=== PATIENT | male | born 1990 | race Caucasian/White ===

== ENCOUNTER 2018-06-04 19:00 | Inpatient (IN) | payer MEDICAID ==
[~2018-06-04] VITALS: Ht 165.1 cm; Wt 71.8 kg
[2018-06-04 19:57] LABS: BASOPHILS 0.1 % (0-2); EOSINOPHILS 0.8 % (0-7); HEMATOCRIT 43.2 % (42.0-54.0); HEMOGLOBIN 14.9 g/dL (13.5-17.5); IMMATURE GRANULOCYTES 0.3 % (0-5); LYMPHOCYTES 7.5 % (15-50); MCH 30.8 pg (26.0-34.0); MCHC 34.5 g/dL (31.0-37.0); MCV 89.3 fL (80.0-100.0); MEAN PLATELET VOLUME 10.5 fL (7.4-10.4); MONOCYTES 8.5 % (2-11); NEUTROPHILS 82.8 % (40-80); PLATELET COUNT 261 10x3/uL (130-400); RBC 4.84 10x6/uL (4.20-6.10); RDW 13.1 % (11.5-14.5); WBC 15.4 10x3/uL (4.8-10.8)
[2018-06-04 20:00] LABS: APPEARANCE CLEAR (CLEAR); COLOR YELLOW (YELLOW)
[2018-06-04 20:02] LABS: BILIRUBIN NEGATIVE (NEGATIVE); GLUCOSE NEGATIVE (NEGATIVE); KETONE NEGATIVE (NEGATIVE); NITRITE NEGATIVE (NEGATIVE); PROTEIN NEGATIVE (NEGATIVE); UROBILINOGEN NORMAL (NORMAL)
[2018-06-04 20:04] LABS: APTT 30.4 SECONDS (22.8-39.4); INR 1.08 (0.85-1.17); PROTIME 13.5 SECONDS (11.6-15.0)
[2018-06-04 20:11] LABS: ALBUMIN 3.9 g/dL (3.4-5.0); ALKALINE PHOSPHATASE 141 U/L (46-116); ALT (SGPT) 120 U/L (10-68); BILIRUBIN - TOTAL 0.67 mg/dL (0.2-1.3); CALC OSMOLALITY 266 mosm/kg (275-300); CALCIUM 8.6 mg/dL (8.5-10.1); CARBON DIOXIDE 27.5 mmol/L (21.0-32.0); CHLORIDE - SERUM 98 mmol/L (98-107); CREATININE - SERUM 1.1 mg/dL (0.6-1.3); GLUCOSE 105 mg/dL (74-106); POTASSIUM - SERUM 3.7 mmol/L (3.5-5.1); PROTEIN - SERUM 8.4 g/dL (6.4-8.2); SODIUM 133 mmol/L (136-145); UDS - AMPHET NEGATIVE QUAL (NEGATIVE); UDS - BARB NEGATIVE QUAL (NEGATIVE); UDS - BENZO NEGATIVE QUAL (NEGATIVE); UDS - COCAINE NEGATIVE QUAL (NEGATIVE); UDS - OPIATE NEGATIVE QUAL (NEGATIVE); UDS - PCP NEGATIVE QUAL (NEGATIVE); UDS - THC NEGATIVE QUAL (NEGATIVE); UREA NITROGEN 15 mg/dL (7-18); eGFR NON AFRICAN AMERICAN 85 mL/min (90-120)
[2018-06-04 20:21] LABS: CKMB 0.5 U/L (0.0-3.6); CREATINE KINASE 112 UL (21-232)
[2018-06-04 20:23] LABS: TROPONIN-I < 0.017 ng/mL (0.000-0.060)
[2018-06-04 23:39] VITALS: BP 110/76; Ht 165.1 cm; Wt 71.8 kg
[2018-06-05 07:16] LABS: BASOPHILS 0.1 % (0-2); EOSINOPHILS 1.1 % (0-7); HEMATOCRIT 40.9 % (42.0-54.0); HEMOGLOBIN 14.1 g/dL (13.5-17.5); IMMATURE GRANULOCYTES 0.2 % (0-5); LYMPHOCYTES 12.3 % (15-50); MCH 30.7 pg (26.0-34.0); MCHC 34.5 g/dL (31.0-37.0); MCV 88.9 fL (80.0-100.0); MEAN PLATELET VOLUME 11.3 fL (7.4-10.4); MONOCYTES 9.4 % (2-11); NEUTROPHILS 76.9 % (40-80); PLATELET COUNT 241 10x3/uL (130-400); RDW 13.3 % (11.5-14.5); WBC 12.1 10x3/uL (4.8-10.8)
[2018-06-05 07:37] LABS: ALBUMIN 3.1 g/dL (3.4-5.0); ALKALINE PHOSPHATASE 125 U/L (46-116); ALT (SGPT) 92 U/L (10-68); BILIRUBIN - TOTAL 0.48 mg/dL (0.2-1.3); CALCIUM 8.6 mg/dL (8.5-10.1); CARBON DIOXIDE 26.2 mmol/L (21.0-32.0); CHLORIDE - SERUM 101 mmol/L (98-107); GLUCOSE 103 mg/dL (74-106); POTASSIUM - SERUM 3.7 mmol/L (3.5-5.1); PROTEIN - SERUM 7.4 g/dL (6.4-8.2); SODIUM 137 mmol/L (136-145); eGFR NON AFRICAN AMERICAN > 90 mL/min (90-120)
[2018-06-05 07:38] LABS: CALC OSMOLALITY 275 mosm/kg (275-300); UREA NITROGEN 19 mg/dL (7-18)
[2018-06-05 09:05] VITALS: BP 127/70
[2018-06-05 12:47] VITALS: BP 120/75
[2018-06-05 17:24] VITALS: BP 132/77
[2018-06-05 20:34] VITALS: BP 123/76
[2018-06-06 00:05] VITALS: BP 134/74
[2018-06-06 05:15] VITALS: BP 124/63
[2018-06-06 06:25] LABS: BASOPHILS 0.1 % (0-2); EOSINOPHILS 2.1 % (0-7); HEMATOCRIT 43.3 % (42.0-54.0); HEMOGLOBIN 14.8 g/dL (13.5-17.5); IMMATURE GRANULOCYTES 0.2 % (0-5); MCH 30.5 pg (26.0-34.0); MCHC 34.2 g/dL (31.0-37.0); MCV 89.3 fL (80.0-100.0); MONOCYTES 12.6 % (2-11); PLATELET COUNT 228 10x3/uL (130-400); RBC 4.85 10x6/uL (4.20-6.10); RDW 13.2 % (11.5-14.5); WBC 13.7 10x3/uL (4.8-10.8)
[2018-06-06 06:36] LABS: CALCIUM 8.4 mg/dL (8.5-10.1); CHLORIDE - SERUM 103 mmol/L (98-107); CREATININE - SERUM 0.9 mg/dL (0.6-1.3); GLUCOSE 128 mg/dL (74-106); POTASSIUM - SERUM 3.7 mmol/L (3.5-5.1); SODIUM 139 mmol/L (136-145); eGFR NON AFRICAN AMERICAN > 90 mL/min (90-120)
[2018-06-06 06:42] LABS: CALC OSMOLALITY 277 mosm/kg (275-300)
[2018-06-06 06:46] LABS: UREA NITROGEN 8 mg/dL (7-18)
[2018-06-06 08:31] VITALS: BP 105/66
[2018-06-06 11:27] LABS: MONO NEGATIVE (NEGATIVE)
--- NOTE | 2018-06-06 15:13 | EC ---
PATIENT:FEMI CLEVELAND DATE OF SERVICE: 06/04/18 SEX: M MEDICAL RECORD: [id number] DATE OF : [birth year] LOCATION:[facility] [address] AGE OF PATIENT: 28 ADMISSION DATE: 06/04/18 REFERRING PHYSICIAN: INTERPRETING PHYSICIAN: EMIL GARZA MD ECHOCARDIOGRAM REPORT ECHO CHARGES 4 ECHO COMPLETE Date: 06/05/18 CLINICAL DIAGNOSIS: H/O IV DRUG USE - R/O VEGETATION ECHOCARDIOGRAPHIC MEASUREMENTS (adult normal given) AC root (d.<3.7cm) 3.0 cm LV Septum d (<1.2 cm> 1.2 cm Valve Excursion 1.7 cm LV Septum (systole) 1.5 cm Left Atria (s.<4.0cm> 3.0 cm LVPW d(<1.2cm) 1.0 cm RV (d.<2.3cm) 1.9 cm LVPW (sytole) 1.4 cm LV diastole(<5.6CM) 4.3 cm MV E-F(>70mm/sec) cm LV systole 3.0 cm LVOT Diameter 1.8 cm MV exc.(>10mm) cm Est.ejection fraction (50-75%) % DOPPLER: LVIT cm/sec A 100 cm/sec E 116 cm/sec LA cm/sec RVSP 18.4 mmHg LVOT 118 cm/sec AOP1/2T m/s Asc. Ao 140 cm/sec RVOT 80.0 cm/sec RA cm/sec PA 101 cm/sec AV Gradient Peak 7.9 mmHg AV Mean 4.0 mmHg AV Area 1.6 cm MV Gradient Peak 6.4 mmHg MV Mean 2.6 mmHg MV Area cm COMMENTS: Mainframe Programmer Analyst: Keyana MCKINNEYOE Radio Communications Mechanician: 1 Dr. Garza TAPE# PACS Pericardial Effusion N DATE OF SERVICE: 06/05/2018 PROCEDURE: Echocardiogram. FINDINGS: 1. Left ventricle chamber size is within normal limits. Left ventricular systolic function is normal. Overall ejection fraction estimated at 55%. 2. Left atrium, right atrium, and right ventricle chamber sizes are within normal limits. 3. Valvular structures: Aortic valve demonstrates aortic sclerosis, but no ECHOCARDIOGRAM REPORT [id number] FEMI CLEVELAND significant aortic stenosis. There is no evidence of vegetative endocarditis throughout. 4. Doppler interrogation reveals trace mitral regurgitation, trace tricuspid regurgitation, no other valvular insufficiency or stenosis and pulmonary systolic pressure is estimated at 18 mmHg. TRANSINT:[id number] Voice Confirmation ID: [id number] DOCUMENT ID: [id number] EMIL GARZA MD at 1513 CC: [id number] DICTATION DATE: 06/06/18 0858 ADMINISTRATIVE TECHNICIAN: 06/06/18 1205 ADM IN [facility] [address] [id number]
[2018-06-06 16:44] VITALS: BP 113/69
[2018-06-06 20:01] VITALS: BP 126/81
[2018-06-07 05:38] LABS: BASOPHILS 0.2 % (0-2); HEMATOCRIT 41.6 % (42.0-54.0); HEMOGLOBIN 13.9 g/dL (13.5-17.5); IMMATURE GRANULOCYTES 0.3 % (0-5); LYMPHOCYTES 15.7 % (15-50); MCHC 33.4 g/dL (31.0-37.0); MCV 89.7 fL (80.0-100.0); MEAN PLATELET VOLUME 10.8 fL (7.4-10.4); MONOCYTES 11.2 % (2-11); NEUTROPHILS 68.6 % (40-80); PLATELET COUNT 248 10x3/uL (130-400); RBC 4.64 10x6/uL (4.20-6.10); RDW 12.9 % (11.5-14.5); WBC 12.5 10x3/uL (4.8-10.8)
[2018-06-07 06:12] LABS: CALC OSMOLALITY 277 mosm/kg (275-300); CALCIUM 8.6 mg/dL (8.5-10.1); CARBON DIOXIDE 26.3 mmol/L (21.0-32.0); CHLORIDE - SERUM 103 mmol/L (98-107); CREATININE - SERUM 1.1 mg/dL (0.6-1.3); GLUCOSE 116 mg/dL (74-106); POTASSIUM - SERUM 3.8 mmol/L (3.5-5.1); SODIUM 139 mmol/L (136-145); UREA NITROGEN 10 mg/dL (7-18); eGFR NON AFRICAN AMERICAN 85 mL/min (90-120)
[2018-06-07 13:10] LABS: EBV - EARLY ANTIGEN AB IGG <9.0 U/mL (0.0-8.9); EBV VIRAL CAPSID AB IGM <36.0 U/mL (0.0-35.9)
[2018-06-07 16:24] VITALS: BP 123/76
[2018-06-07 20:25] VITALS: BP 122/66
[2018-06-08 03:41] VITALS: BP 108/62
[2018-06-08 05:15] LABS: BASOPHILS 0.2 % (0-2); EOSINOPHILS 3.3 % (0-7); HEMATOCRIT 41.3 % (42.0-54.0); HEMOGLOBIN 14.3 g/dL (13.5-17.5); IMMATURE GRANULOCYTES 0.5 % (0-5); LYMPHOCYTES 19.2 % (15-50); MCH 30.3 pg (26.0-34.0); MCHC 34.6 g/dL (31.0-37.0); MEAN PLATELET VOLUME 10.8 fL (7.4-10.4); MONOCYTES 14.3 % (2-11); NEUTROPHILS 62.5 % (40-80); PLATELET COUNT 230 10x3/uL (130-400); RBC 4.72 10x6/uL (4.20-6.10); RDW 12.6 % (11.5-14.5); WBC 10.9 10x3/uL (4.8-10.8)
[2018-06-08 05:17] LABS: MCV 87.5 fL (80.0-100.0)
[2018-06-08 05:28] LABS: CALCIUM 8.5 mg/dL (8.5-10.1); CARBON DIOXIDE 27.3 mmol/L (21.0-32.0); CHLORIDE - SERUM 106 mmol/L (98-107); GLUCOSE 98 mg/dL (74-106); POTASSIUM - SERUM 3.9 mmol/L (3.5-5.1); SODIUM 142 mmol/L (136-145)
[2018-06-08 05:29] LABS: CALC OSMOLALITY 283 mosm/kg (275-300); CREATININE - SERUM 0.8 mg/dL (0.6-1.3); UREA NITROGEN 15 mg/dL (7-18); eGFR NON AFRICAN AMERICAN > 90 mL/min (90-120)
[2018-06-08 09:08] VITALS: BP 118/77
[2018-06-08 13:36] VITALS: BP 133/75
[2018-06-08 18:14] VITALS: BP 110/74
[2018-06-08 19:50] VITALS: BP 129/70
[2018-06-09 00:45] VITALS: BP 128/77
[2018-06-09 04:28] VITALS: BP 122/69
[2018-06-09 04:58] LABS: BASOPHILS 0.2 % (0-2); EOSINOPHILS 3.3 % (0-7); HEMATOCRIT 41.5 % (42.0-54.0); HEMOGLOBIN 14.2 g/dL (13.5-17.5); IMMATURE GRANULOCYTES 0.8 % (0-5); LYMPHOCYTES 16.3 % (15-50); MCH 30.1 pg (26.0-34.0); MCHC 34.2 g/dL (31.0-37.0); MCV 87.9 fL (80.0-100.0); MEAN PLATELET VOLUME 10.3 fL (7.4-10.4); MONOCYTES 14.4 % (2-11); PLATELET COUNT 258 10x3/uL (130-400); RBC 4.72 10x6/uL (4.20-6.10); RDW 12.7 % (11.5-14.5); WBC 12.9 10x3/uL (4.8-10.8)
[2018-06-09 05:13] LABS: CALC OSMOLALITY 278 mosm/kg (275-300); CALCIUM 8.6 mg/dL (8.5-10.1); CARBON DIOXIDE 28.3 mmol/L (21.0-32.0); CHLORIDE - SERUM 103 mmol/L (98-107); CREATININE - SERUM 0.9 mg/dL (0.6-1.3); GLUCOSE 123 mg/dL (74-106); SODIUM 140 mmol/L (136-145); UREA NITROGEN 11 mg/dL (7-18); eGFR NON AFRICAN AMERICAN > 90 mL/min (90-120)
[2018-06-09 09:01] VITALS: BP 103/59
[2018-06-09] MEDS ORDERED: PERCOCET 5-3251 TAB PO (12:08)
[2018-06-09] MEDS ORDERED: KEFLEX500 MG PO (12:08)
[2018-06-09] MEDS ORDERED: FLORAJEN3 CAPS460 MG PO (12:08)
--- NOTE | 2018-06-09 12:44 | MORECARE ---
CASE MANAGEMENT DISCHARGE SUMMARY PATIENT: FEMI CLEVELAND UNIT: [id number] ADM DATE: 06/04/18 AGE: 28 : [birth year] SEX: M ROOM/BED: D.2231 AUTHOR: CATALINADOC PHYSICIAN: REFERRING PHYSICIAN: BAMBI CARBAJAL MD DATE OF SERVICE: 06/09/18 Discharge Plan Patient Name: FEMI CLEVELAND Facility: [facility]:[place] : 1990 Planned Disposition: Home Anticipated Discharge Date: Discharge Date: Expected LOS: Initial Reviewer: [email or web address] Initial Review Date: 06/09/2018 Generated: 06/09/18 1:43 pm Comments DCP- Discharge Planning Updated by [email or web address]: Elsie Gomez on 06/09/18 11:[address] Patient Name: FEMI CLEVELAND Admission Status: ER Accout number: [id number] Admission Date: 06-04-2018 : 1990 Admission Diagnosis: Attending: BAMBI CARBAJAL Current LOS: 5 Anticipated DC Date: Planned Disposition: Home [place] Insurance: [place] [employer] [facility] Discharge Planning Comments: CM met with patient to complete initial dc planning assessment. CM educated patient on the CM role and verbal consent given by patient to complete assessment. Patient lives at a chem-free house with 2 room mates. At discharge patient plans to return and feels this is a safe discharge. CM discussed availability of home health, rehab services, and medical equipment. Patient denied known discharge needs at this time. States his house dad is on his way to pick him up. CM will continue to follow and will assist as needed with dc plans/needs. Forwarder Operator: Elsie Gomez DCPIA - Discharge Planning Initial Assessment Updated by [email or web address]: Elsie Gomez on 06/09/18 12:40 pm * Is the patient Alert and Oriented? Yes * How many steps to enter\exit or inside your home? 110 * PCP None * Pharmacy [facility] in [place] * Preadmission Environment Home with Family * ADLs Independent * Equipment None * List name and contact numbers for known caregivers / representatives who currently or will assist patient after discharge: [facility] - [phone] * Verbal permission to speak to the caregivers and representatives has been obtained from the patient. Yes * Community resources currently utilized None * Additional services required to return to the preadmission environment? No * Can the patient safely return to the preadmission environment? Yes * Has this patient been hospitalized within the prior 30 days at any hospital? No Patient Name: FEMI CLEVELAND Page [id number] at 1244 All edits/amendments must be made on the electronic document DICTATION DATE: 06/09/181242 PLANT TOUR GUIDE: PORTILLO 06/09/181242 RPT#: [id number] DC DATE: STATUS: ADM IN [facility] [address] [place] [address] END OF REPORT
[2018-06-09] MEDS ORDERED: IBUPROFEN800 MG PO (12:54)
[2018-06-09 12:57] VITALS: BP 109/70
[2018-06-11 19:07] LABS: AEROBE ID Final report (())
== END 2018-06-09 13:23 | disposition home or self-care (01) | DRG 605 ==
LOC: D.ER 19:00 → D.EDHOLD 21:41 → D.MS 21:41
PROVIDERS: Family Medicine; ADMIT Internal Medicine Nephrology; ATTEND Internal Medicine Nephrology
DX: S80.11XA Contusion of right lower leg, initial encounter (principal); L03.221 Cellulitis of neck; V00.131A Fall from skateboard, initial encounter; K02.9 Dental caries, unspecified; B19.20 Unspecified viral hepatitis C without hepatic coma; J02.9 Acute pharyngitis, unspecified; G35 Multiple sclerosis; J03.91 Acute recurrent tonsillitis, unspecified

== ENCOUNTER 2019-11-13 19:51 | Emergency (ER) | payer MEDICAID ==
[~2019-11-13] VITALS: Ht 165.1 cm; Wt 88.2 kg
[~2019-11-13 19:51] MED LIST: FLORAJEN3 CAPS460 MG PO; IBUPROFEN800 MG PO; KEFLEX500 MG PO; PERCOCET 5-3251 TAB PO; TAMIFLU75 MG PO
[2019-11-13 20:02] VITALS: BP 149/90; Ht 165.1 cm; Wt 88.2 kg
[2019-11-13] MEDS ORDERED: CYCLOBENZAPRINE10 MG PO (20:32)
== END 2019-11-13 21:12 | disposition home or self-care (01) ==
LOC: D.ER 19:51
DX: M89.8X9 Other specified disorders of bone, unspecified site (principal)

== ENCOUNTER → 2019-11-27 12:36 | Outpatient (CLI) | payer MEDICAID ==
[2019-11-13 20:02] VITALS: BMI 32.3
[~2019-11-27 12:36] MED LIST changes: +CYCLOBENZAPRINE10 MG PO
== END | disposition home or self-care (01) ==
LOC: D.MRI 12:36
PROVIDERS: ATTEND Nurse Practitioner Family
DX: M79.671 Pain in right foot (principal)